=== PATIENT | male | born 1950 | race Caucasian/White ===

== ENCOUNTER → 2019-04-30 11:35 | Outpatient (CLI) | payer MEDICARE, OTHER, SELFPAY ==
[2019-04-30 12:18] LABS: Influenza A - CEPHEID Flu A POSITIVE (NEGATIVE); Influenza B - CEPHEID Flu B NEGATIVE (NEGATIVE)
== END ==
PROVIDERS: Visit Provider Nurse Practitioner
DX: R68.89 Other general symptoms and signs (principal)
CPT/HCPCS: 87502